=== PATIENT | male | born 1940 | race Caucasian/White ===

== ENCOUNTER 2022-03-21 11:15 | Inpatient (IN) ==
[2022-03-21] MEDS: Metoprolol XL (24 HR) Succ 50 MG TAB.ER.24H PO SCH (21:30)
[2022-03-21] MEDS: Gabapentin 300 MG CAPSULE PO SCH (21:30)
[2022-03-21] MEDS: Apixaban 5 MG TABLET PO SCH (21:30)
[2022-03-22 00:59] LABS: Bilirubin,Urine Negative (Negative); Blood,Urine Trace-intact (Negative); Clarity,Urine Slightly Cloudy (Clear); Color,Urine Yellow (Yellow); Glucose,Urine (UA) Normal (Normal); Ketones,Urine Negative (Negative); Leukocyte Esterase,Urine Small (Negative); Nitrite,Urine Negative (Negative); Protein,Urine 30 mg/dL (Neg-Trace); Specific Gravity,Urine 1.015 (1.010-1.025); Urobilinogen,Urine Normal (Normal)
[2022-03-22 01:05] LABS: Bacteria,Urine Many per hpf (None-Few); RBC,Urine 0-3 per hpf (0-3); Squamous Epithelial Cell,Urine Few per hpf (None-Few); WBC,Urine 30-50 per hpf (0-3)
[2022-03-22 04:22] LABS: Hematocrit 27.8 % (37.5-50.1); Hemoglobin 8.9 g/dL (12.9-16.9); Mean Corpuscular Hemoglobin 29.2 pg (28.0-33.3); Mean Corpuscular Volume 91.1 fL (83.0-100.0); Mean Platelet Volume 11.2 fL (9.4-12.4); Platelet Count 235 K/mcL (140-400); Red Blood Count 3.05 M/mcL (4.19-5.50); Red Cell Distribution Width 14.8 % (11.5-14.5); White Blood Count 10.1 K/mcL (4.3-11.1)
[2022-03-22 04:42] LABS: Albumin 2.8 g/dL (3.5-5.7); Bilirubin,Total 0.5 mg/dL (0.3-1.0); Calcium 8.3 mg/dL (8.6-10.3); Globulin 2.9 g/dL (2.4-3.5); Magnesium 2.6 mg/dL (1.6-2.6); Total Protein 5.7 g/dL (6.4-8.9)
[2022-03-22] MEDS: Gabapentin 300 MG CAPSULE PO SCH ×2 (08:04→20:51)
[2022-03-22] MEDS: Apixaban 5 MG TABLET PO SCH ×2 (08:04→20:51)
[2022-03-22] MEDS: Multivit/Ca/Min/Fe/FA 1 TAB TABLET PO SCH (08:05)
[2022-03-22] MEDS: polyethylene glycoL 3350 17 GM POWD.PACK PO SCH (08:05)
[2022-03-22] MEDS: cephALEXin 500 MG CAPSULE PO SCH ×2 (15:05→20:52)
[2022-03-22] MEDS: Metoprolol XL (24 HR) Succ 50 MG TAB.ER.24H PO SCH (20:52)
[2022-03-23] MEDS: *HR* OxyCODONE Immed Rel 5 MG TABLET PO PRN ×4 (01:10→17:18)
[2022-03-23] MEDS: Apixaban 5 MG TABLET PO SCH ×2 (07:50→20:04)
[2022-03-23] MEDS: Multivit/Ca/Min/Fe/FA 1 TAB TABLET PO SCH (07:50)
[2022-03-23] MEDS: Gabapentin 300 MG CAPSULE PO SCH ×2 (07:50→20:03)
[2022-03-23] MEDS: cephALEXin 500 MG CAPSULE PO SCH (07:50)
[2022-03-23] MEDS: polyethylene glycoL 3350 17 GM POWD.PACK PO SCH (07:51)
[2022-03-23 09:40] LABS: Basophils % 0.2 %; Eosinophils % 0.1 %; Hematocrit 32.4 % (37.5-50.1); Hemoglobin 10.6 g/dL (12.9-16.9); Immature Granulocytes % 0.7 % (0-4); Lymphocytes # 0.6 K/mcL (0.6-4.6); Lymphocytes % 2.3 %; Mean Corpuscular HGB Conc 32.7 g/dL (31.6-35.5); Mean Corpuscular Volume 91.8 fL (83.0-100.0); Mean Platelet Volume 10.9 fL (9.4-12.4); Monocytes # 1.3 K/mcL (0.0-1.3); Monocytes % 5.1 %; Neutrophils # 23.4 K/mcL (1.6-8.9); Platelet Count 327 K/mcL (140-400); Red Blood Count 3.53 M/mcL (4.19-5.50); Red Cell Distribution Width 15.1 % (11.5-14.5); Segmented Neutrophils % 91.6 %; White Blood Count 25.5 K/mcL (4.3-11.1)
[2022-03-23 09:53] LABS: Calcium 8.4 mg/dL (8.6-10.3); Potassium 4.7 mEq/L (3.5-5.1)
[2022-03-23 10:25] LABS: Basophils # 0.1 K/mcL (0.0-0.2)
[2022-03-23 10:27] LABS: Platelet Estimate Normal (Normal); Toxic Vacuolation Present (Not Present)
[2022-03-23] MEDS: cefTRIAXone 1,000 MG in Water for inj. (sterile) 10 ML IVP SCH (11:12)
[2022-03-23] MEDS: Metoprolol XL (24 HR) Succ 50 MG TAB.ER.24H PO SCH (20:03)
[2022-03-23] MEDS: Acetaminophen 325 MG TABLET PO PRN (20:05)
[2022-03-24] MEDS: *HR* OxyCODONE Immed Rel 5 MG TABLET PO PRN ×3 (04:09→17:50)
[2022-03-24 05:45] LABS: Basophils % 0.2 %; Eosinophils % 0.1 %; Hematocrit 29.8 % (37.5-50.1); Hemoglobin 9.6 g/dL (12.9-16.9); Immature Granulocytes % 0.8 % (0-4); Lymphocytes # 0.8 K/mcL (0.6-4.6); Lymphocytes % 4.6 %; Mean Corpuscular HGB Conc 32.2 g/dL (31.6-35.5); Mean Corpuscular Hemoglobin 29.8 pg (28.0-33.3); Mean Corpuscular Volume 92.5 fL (83.0-100.0); Monocytes # 0.9 K/mcL (0.0-1.3); Monocytes % 4.9 %; Neutrophils # 16.3 K/mcL (1.6-8.9); Platelet Count 313 K/mcL (140-400); Red Blood Count 3.22 M/mcL (4.19-5.50); Red Cell Distribution Width 15.1 % (11.5-14.5); Segmented Neutrophils % 89.4 %; White Blood Count 18.2 K/mcL (4.3-11.1)
[2022-03-24 06:08] LABS: Calcium 8.4 mg/dL (8.6-10.3); Magnesium 2.3 mg/dL (1.6-2.6); Potassium 4.2 mEq/L (3.5-5.1)
[2022-03-24] MEDS ORDERED: *HR* Metoprolol 5 MG/5 ML VIAL IVP ONE (06:24)
[2022-03-24] MEDS: Multivit/Ca/Min/Fe/FA 1 TAB TABLET PO SCH (09:13)
[2022-03-24] MEDS: Apixaban 5 MG TABLET PO SCH ×2 (09:13→20:01)
[2022-03-24] MEDS: Gabapentin 300 MG CAPSULE PO SCH ×2 (09:14→20:00)
[2022-03-24] MEDS: polyethylene glycoL 3350 17 GM POWD.PACK PO SCH (09:15)
[2022-03-24] MEDS: cefTRIAXone 1,000 MG in Water for inj. (sterile) 10 ML IVP SCH (09:16)
[2022-03-24] MEDS: Acetaminophen 325 MG TABLET PO PRN ×2 (10:49→20:02)
[2022-03-24] MEDS ORDERED: 0.9 % Sodium Chloride 1,000 ML IVC SCH (15:00)
[2022-03-24] MEDS ORDERED: Ertapenem 1,000 MG in 0.9 % Sodium Chloride Mini Bag 100 ML IVPB SCH (16:00)
[2022-03-24] MEDS: Nystatin SUSP 5 ML UD.LIQ PO SCH ×2 (16:33→20:03)
[2022-03-24] MEDS: Metoprolol XL (24 HR) Succ 50 MG TAB.ER.24H PO SCH (20:01)
[2022-03-24 20:29] LABS: Adenovirus Not Detected (Not Detect); Bordetella Pertussis Not Detected (Not Detect); Chlamydophila pneumoniae Not Detected (Not Detect); Coronavirus 229E Not Detected (Not Detect); Coronavirus HKU1 Not Detected (Not Detect); Coronavirus NL63 Not Detected (Not Detect); Coronavirus OC43 Not Detected (Not Detect); Human Metapneumovirus Not Detected (Not Detect); Human Rhinovirus/Enterovirus Not Detected (Not Detect); Influenza A Subtype 2009 H1 Not Detected (Not Detect); Influenza B Not Detected (Not Detect); Mycoplasma pneumoniae Not Detected (Not Detect); Parainfluenza Virus 1 Not Detected (Not Detect); Parainfluenza Virus 2 Not Detected (Not Detect); Parainfluenza Virus 3 Not Detected (Not Detect); Parainfluenza Virus 4 Not Detected (Not Detect); Respiratory Syncytial Virus Not Detected (Not Detect); SARS-CoV-2 Not Detected (Not Detect)
[2022-03-25] MEDS: Ertapenem 1,000 MG in 0.9 % Sodium Chloride Mini Bag 100 ML IVPB SCH (13:51)
[2022-03-25 14:03] LABS: Hematocrit 27.6 % (37.5-50.1); Hemoglobin 8.9 g/dL (12.9-16.9); Mean Corpuscular HGB Conc 32.2 g/dL (31.6-35.5); Mean Corpuscular Hemoglobin 29.7 pg (28.0-33.3); Mean Platelet Volume 10.7 fL (9.4-12.4); Platelet Count 284 K/mcL (140-400); White Blood Count 13.1 K/mcL (4.3-11.1)
[2022-03-25 14:27] LABS: Calcium 8.5 mg/dL (8.6-10.3); Magnesium 2.3 mg/dL (1.6-2.6)
[2022-03-25] MEDS: 0.9 % Sodium Chloride 1,000 ML IVC SCH (17:01)
[2022-03-25] MEDS: *HR* OxyCODONE Immed Rel 5 MG TABLET PO PRN (17:12)
[2022-03-25] MEDS: Apixaban 5 MG TABLET PO SCH (21:24)
[2022-03-25] MEDS: Metoprolol XL (24 HR) Succ 50 MG TAB.ER.24H PO SCH (21:24)
[2022-03-25] MEDS: Gabapentin 300 MG CAPSULE PO SCH (21:24)
[2022-03-25] MEDS: Nystatin SUSP 5 ML UD.LIQ PO SCH (21:29)
[2022-03-26] MEDS: *HR* OxyCODONE Immed Rel 5 MG TABLET PO PRN ×4 (02:59→21:54)
[2022-03-26] MEDS: 0.9 % Sodium Chloride 1,000 ML IVC SCH ×2 (03:03→21:08)
[2022-03-26] MEDS: Apixaban 5 MG TABLET PO SCH ×3 (09:12→20:27)
[2022-03-26] MEDS: Ertapenem 1,000 MG in 0.9 % Sodium Chloride Mini Bag 100 ML IVPB SCH (09:13)
[2022-03-26] MEDS: Gabapentin 300 MG CAPSULE PO SCH ×2 (09:13→20:26)
[2022-03-26] MEDS: Nystatin SUSP 5 ML UD.LIQ PO SCH ×4 (09:13→21:51)
[2022-03-26] MEDS: Multivit/Ca/Min/Fe/FA 1 TAB TABLET PO SCH (09:13)
[2022-03-26] MEDS: Metoprolol XL (24 HR) Succ 50 MG TAB.ER.24H PO SCH (20:26)
[2022-03-27] MEDS: *HR* OxyCODONE Immed Rel 5 MG TABLET PO PRN ×2 (03:51→21:48)
[2022-03-27 03:52] LABS: Basophils % 0.5 %; Eosinophils # 0.2 K/mcL (0.0-0.6); Eosinophils % 2.1 %; Hematocrit 24.9 % (37.5-50.1); Hemoglobin 7.8 g/dL (12.9-16.9); Immature Granulocytes % 1.7 % (0-4); Lymphocytes % 12.1 %; Mean Corpuscular HGB Conc 31.3 g/dL (31.6-35.5); Mean Corpuscular Hemoglobin 29.2 pg (28.0-33.3); Mean Corpuscular Volume 93.3 fL (83.0-100.0); Mean Platelet Volume 11.1 fL (9.4-12.4); Monocytes # 0.7 K/mcL (0.0-1.3); Monocytes % 8.7 %; Neutrophils # 6.3 K/mcL (1.6-8.9); Platelet Count 278 K/mcL (140-400); Red Blood Count 2.67 M/mcL (4.19-5.50); Red Cell Distribution Width 14.9 % (11.5-14.5); Segmented Neutrophils % 74.9 %; White Blood Count 8.4 K/mcL (4.3-11.1)
[2022-03-27 04:09] LABS: Calcium 8.2 mg/dL (8.6-10.3); Potassium 3.9 mEq/L (3.5-5.1)
[2022-03-27] MEDS: polyethylene glycoL 3350 17 GM POWD.PACK PO SCH (10:19)
[2022-03-27] MEDS: Ertapenem 1,000 MG in 0.9 % Sodium Chloride Mini Bag 100 ML IVPB SCH (10:19)
[2022-03-27] MEDS: Gabapentin 300 MG CAPSULE PO SCH ×2 (10:20→21:48)
[2022-03-27] MEDS: Multivit/Ca/Min/Fe/FA 1 TAB TABLET PO SCH (10:20)
[2022-03-27] MEDS: Apixaban 5 MG TABLET PO SCH ×2 (10:20→21:48)
[2022-03-27] MEDS: Nystatin SUSP 5 ML UD.LIQ PO SCH ×4 (10:23→21:48)
[2022-03-27] MEDS: Metoprolol XL (24 HR) Succ 50 MG TAB.ER.24H PO SCH (21:48)
[2022-03-28 05:06] LABS: Basophils # 0.1 K/mcL (0.0-0.2); Basophils % 0.6 %; Eosinophils # 0.1 K/mcL (0.0-0.6); Eosinophils % 1.2 %; Hemoglobin 8.1 g/dL (12.9-16.9); Immature Granulocytes % 2.2 % (0-4); Lymphocytes # 0.9 K/mcL (0.6-4.6); Lymphocytes % 11.3 %; Mean Corpuscular HGB Conc 32.4 g/dL (31.6-35.5); Mean Corpuscular Hemoglobin 29.9 pg (28.0-33.3); Mean Corpuscular Volume 92.3 fL (83.0-100.0); Mean Platelet Volume 10.8 fL (9.4-12.4); Monocytes # 0.9 K/mcL (0.0-1.3); Monocytes % 11.1 %; Neutrophils # 5.9 K/mcL (1.6-8.9); Platelet Count 260 K/mcL (140-400); Red Blood Count 2.71 M/mcL (4.19-5.50); Red Cell Distribution Width 14.8 % (11.5-14.5); Segmented Neutrophils % 73.6 %
[2022-03-28 05:24] LABS: Calcium 8.2 mg/dL (8.6-10.3); Potassium 3.8 mEq/L (3.5-5.1)
[2022-03-28 08:37] LABS: % Iron Saturation 8 % (20-55); Iron 14 mcg/dL (65-175); Transferrin 123 mg/dL (203-362)
[2022-03-28 08:54] LABS: Ferritin 518 ng/mL (20-250)
[2022-03-28] MEDS: Ertapenem 1,000 MG in 0.9 % Sodium Chloride Mini Bag 100 ML IVPB SCH (09:23)
[2022-03-28] MEDS: *HR* OxyCODONE Immed Rel 5 MG TABLET PO PRN (09:25)
[2022-03-28] MEDS: Multivit/Ca/Min/Fe/FA 1 TAB TABLET PO SCH (09:25)
[2022-03-28] MEDS: Apixaban 5 MG TABLET PO SCH ×2 (09:25→23:05)
[2022-03-28] MEDS: Gabapentin 300 MG CAPSULE PO SCH ×2 (09:25→23:01)
[2022-03-28] MEDS: polyethylene glycoL 3350 17 GM POWD.PACK PO SCH (09:26)
[2022-03-28] MEDS: Nystatin SUSP 5 ML UD.LIQ PO SCH ×4 (09:26→23:08)
[2022-03-28] MEDS: *HR* HYDROcodone/Acet 5/325 mg TABLET PO PRN ×2 (14:16→23:03)
[2022-03-28] MEDS: Acetaminophen 325 MG TABLET PO PRN (14:17)
[2022-03-28] MEDS: Metoprolol XL (24 HR) Succ 50 MG TAB.ER.24H PO SCH (23:05)
[2022-03-28] MEDS: Mirtazapine 15 MG TABLET PO SCH (23:06)
[2022-03-29] MEDS: Gabapentin 300 MG CAPSULE PO SCH ×2 (09:55→20:21)
[2022-03-29] MEDS: Multivit/Ca/Min/Fe/FA 1 TAB TABLET PO SCH (09:55)
[2022-03-29] MEDS: Apixaban 5 MG TABLET PO SCH ×3 (09:55→20:20)
[2022-03-29] MEDS: Nystatin SUSP 5 ML UD.LIQ PO SCH ×4 (09:56→20:19)
[2022-03-29] MEDS: Ertapenem 1,000 MG in 0.9 % Sodium Chloride Mini Bag 100 ML IVPB SCH (09:56)
[2022-03-29] MEDS: polyethylene glycoL 3350 17 GM POWD.PACK PO SCH (09:56)
[2022-03-29] MEDS ORDERED: Iron Sucrose Complex 200 MG in 0.9 % Sodium Chloride 100 ML IVPB SCH (14:45)
[2022-03-29] MEDS: Mirtazapine 15 MG TABLET PO SCH (20:20)
[2022-03-29] MEDS: Metoprolol XL (24 HR) Succ 50 MG TAB.ER.24H PO SCH (20:20)
[2022-03-30] MEDS: Apixaban 5 MG TABLET PO SCH ×4 (05:23→18:15)
[2022-03-30] MEDS: polyethylene glycoL 3350 17 GM POWD.PACK PO SCH (08:22)
[2022-03-30] MEDS: Multivit/Ca/Min/Fe/FA 1 TAB TABLET PO SCH (08:23)
[2022-03-30] MEDS: Gabapentin 300 MG CAPSULE PO SCH ×2 (08:23→21:06)
[2022-03-30] MEDS: *HR* HYDROcodone/Acet 5/325 mg TABLET PO PRN (08:23)
[2022-03-30] MEDS: Nystatin SUSP 5 ML UD.LIQ PO SCH ×3 (08:23→21:06)
[2022-03-30] MEDS: Ertapenem 1,000 MG in 0.9 % Sodium Chloride Mini Bag 100 ML IVPB SCH (08:24)
[2022-03-30 12:19] LABS: Basophils % 0.2 %; Eosinophils # 0.2 K/mcL (0.0-0.6); Eosinophils % 2.1 %; Hematocrit 22.1 % (37.5-50.1); Hemoglobin 6.9 g/dL (12.9-16.9); Immature Granulocytes % 0.8 % (0-4); Lymphocytes % 11.1 %; Mean Corpuscular HGB Conc 31.2 g/dL (31.6-35.5); Mean Corpuscular Hemoglobin 29.4 pg (28.0-33.3); Mean Platelet Volume 10.8 fL (9.4-12.4); Monocytes # 0.8 K/mcL (0.0-1.3); Monocytes % 9.3 %; Platelet Count 269 K/mcL (140-400); Red Blood Count 2.35 M/mcL (4.19-5.50); Red Cell Distribution Width 15.1 % (11.5-14.5); Segmented Neutrophils % 76.5 %; White Blood Count 9.1 K/mcL (4.3-11.1)
[2022-03-30 12:36] LABS: Albumin 2.5 g/dL (3.5-5.7); Albumin/Globulin Ratio 0.9 (1.1-2.2); Bilirubin,Total 0.4 mg/dL (0.3-1.0); Calcium 8.4 mg/dL (8.6-10.3); Globulin 2.8 g/dL (2.4-3.5); Potassium 4.3 mEq/L (3.5-5.1); Total Protein 5.3 g/dL (6.4-8.9)
[2022-03-30] MEDS ORDERED: 0.9 % Sodium Chloride 250 ML ONE (14:26)
[2022-03-30] MEDS: Mirtazapine 15 MG TABLET PO SCH (21:06)
[2022-03-30] MEDS: Metoprolol XL (24 HR) Succ 50 MG TAB.ER.24H PO SCH (21:06)
[2022-03-30 23:16] LABS: Hematocrit 25.3 % (37.5-50.1); Hemoglobin 8.3 g/dL (12.9-16.9)
[2022-03-31 05:02] LABS: Basophils % 0.2 %; Eosinophils # 0.2 K/mcL (0.0-0.6); Eosinophils % 2.6 %; Hematocrit 26.9 % (37.5-50.1); Hemoglobin 8.7 g/dL (12.9-16.9); Immature Granulocytes % 1.5 % (0-4); Lymphocytes # 0.8 K/mcL (0.6-4.6); Lymphocytes % 9.8 %; Mean Corpuscular HGB Conc 32.3 g/dL (31.6-35.5); Mean Corpuscular Hemoglobin 29.8 pg (28.0-33.3); Mean Corpuscular Volume 92.1 fL (83.0-100.0); Mean Platelet Volume 10.9 fL (9.4-12.4); Monocytes # 0.7 K/mcL (0.0-1.3); Monocytes % 8.7 %; Neutrophils # 6.3 K/mcL (1.6-8.9); Platelet Count 270 K/mcL (140-400); Red Blood Count 2.92 M/mcL (4.19-5.50); Red Cell Distribution Width 14.7 % (11.5-14.5); Segmented Neutrophils % 77.2 %; White Blood Count 8.1 K/mcL (4.3-11.1)
[2022-03-31 05:19] LABS: Albumin 2.7 g/dL (3.5-5.7); Albumin/Globulin Ratio 0.9 (1.1-2.2); Bilirubin,Total 0.6 mg/dL (0.3-1.0); Calcium 8.5 mg/dL (8.6-10.3); Globulin 2.9 g/dL (2.4-3.5); Magnesium 1.9 mg/dL (1.6-2.6); Total Protein 5.6 g/dL (6.4-8.9)
[2022-03-31] MEDS ORDERED: Ertapenem 1,000 MG in 0.9 % Sodium Chloride Mini Bag 100 ML IVPB SCH (09:00)
[2022-03-31] MEDS: Apixaban 5 MG TABLET PO SCH (09:46)
[2022-03-31] MEDS: polyethylene glycoL 3350 17 GM POWD.PACK PO SCH (09:46)
[2022-03-31] MEDS: Multivit/Ca/Min/Fe/FA 1 TAB TABLET PO SCH (09:46)
[2022-03-31] MEDS: Nystatin SUSP 5 ML UD.LIQ PO SCH ×3 (09:46→17:35)
[2022-03-31] MEDS: Gabapentin 300 MG CAPSULE PO SCH (09:46)
[2022-03-31] MEDS: Acetaminophen 325 MG TABLET PO PRN (12:19)
[2022-03-31] MEDS ORDERED: 0.9 % Sodium Chloride 1,000 ML IVC SCH (12:30)
[2022-03-31] MEDS ORDERED: 0.9 % Sodium Chloride 1,000 ML ONE (12:35)
[2022-03-31 15:37] LABS: ABG Base Excess 3 mEq/L (-2 to 3); ABG HCO3 26 mEq/L (21-27); ABG Oxygen Saturation 97 % (95-98); ABG PCO2 36 mmHg (35-45); ABG PH 7.47 pH Units (7.32-7.45); ABG PO2 80 mmHg (85-104); ABG TCO2 27 mEq/L (20-26)
[2022-03-31 19:17] VITALS: BP 129/73; PULSE 89; RESP 15; TEMP 97.6; O2SAT 96
== END 2022-03-31 20:09 | disposition short-term general hospital (02) | DRG 689 ==
LOC: INPGRE 19:47 → UNDODISIN 03-24 21:30
PROVIDERS: ADMIT Family Medicine; ATTEND Family Medicine